=== PATIENT | female | born 1930 | race Caucasian/White ===

== ENCOUNTER 2021-05-31 12:40 | Inpatient (IN) | payer MEDICARE ==
[2021-05-31 13:35] LABS: #Eosinphils 0.1 thou/uL (0.0-0.7); #Lymphocytes 0.8 thou/uL (1.20-3.40); #Monocytes 0.7 thou/uL (0.11-0.59); #Neutrophils 6.4 thou/uL (1.40-6.50); %Basophils 0.3 % (0.0-1.0); %Eosinophils 1.3 % (0.0-10.0); %Lymphocytes 9.9 % (21.0-51.0); %Monocytes 8.4 % (0.0-10.0); %Neutrophils 80.2 % (42.0-75.0); Hemoglobin 12.4 g/dL (12.0-16.0); Mean Corpuscular HGB CONC 32.1 g/dL (32.0-36.0); Mean Corpuscular Hemoglobin 31.2 pg (27.0-31.0); Mean Platelet Volume 6.7 fL (7.4-10.4); Platelet Count 239 thou/uL (130-400); RBC Distribution Width 13.5 % (11.5-14.5); Red Blood Cell (RBC) Count 3.98 mill/uL (4.20-5.40)
[2021-05-31 13:53] LABS: Bilirubin Negative (Negative); Blood, Urine Negative (Negative); Clarity Clear (Clear); Glucose, Urine (Dipstick) Normal (Negative); Ketone, Urine Negative (Negative); Leukocyte Negative Leu/uL (Negative); Nitrite Negative (Negative); Protein, Urine (Dipstick) Negative (Neg-Trace); Specific Gravity, Urine 1.007 (1.002-1.036); Urobilinogen Normal mg/dL (Less than 2); pH, Urine 7.5 (5.0-9.0)
[2021-05-31 13:58] LABS: ALT (SGPT) 16 U/L (8-55); AST (SGOT) 24 U/L (5-34); Albumin 3.9 g/dL (3.4-4.8); Alkaline Phosphatase 64 U/L (40-110); Anion Gap 15 mmol/L (10-20); BUN (Urea Nitrogen) 15 mg/dL (9.8-20.1); Bilirubin, Total 1.2 mg/dL (0.2-1.2); Calc. Creatinine Clearance 0 mL/min (70-130); Calcium 9.8 mg/dL (7.8-10.44); Carbon Dioxide 26 mmol/L (23-31); Chloride 103 mmol/L (98-107); Glucose 101 mg/dL (83-110); Magnesium 2.4 mg/dL (1.6-2.6); Potassium 3.7 mmol/L (3.5-5.1); Protein, Total 6.9 g/dL (5.8-8.1); Sodium 140 mmol/L (136-145)
[2021-05-31 17:16] LABS: Troponin I 0.018 ng/mL (< 0.028)
[2021-05-31] MEDS ORDERED: Acetaminophen 325 MG TAB PO PRN (18:08)
[2021-05-31] MEDS ORDERED: Ondansetron ODT 4 MG TAB PO PRN (18:08)
[2021-05-31] MEDS ORDERED: Ondansetron PF 4 MG/2 ML Vial IVP PRN (18:08)
[2021-05-31] MEDS ORDERED: Docusate 100 MG CAP PO PRN (18:11)
[2021-05-31] MEDS ORDERED: hydrALAZINE 20 MG/ML VIAL SLOW IVP PRN (18:11)
[2021-05-31] MEDS ORDERED: Electrolyte Replacement Protocol 1 EACH FS SCH (18:15)
[2021-05-31] MEDS ORDERED: Electrolyte Replacement Protocol FS PRN (18:30)
[2021-05-31 20:12] VITALS: BMI 29.4
[2021-05-31] MEDS ORDERED: Carvedilol 3.125 MG TAB PO SCH (21:00)
[2021-05-31] MEDS: Furosemide 20 MG TAB PO SCH (21:24)
[2021-05-31] MEDS: Atorvastatin Calcium 10 MG TAB PO SCH (21:24)
[2021-05-31 23:42] LABS: SARS-CoV-2 PCR by NAA Not Detected (NotDetected)
[2021-06-01 06:30] LABS: Cardiac Risk 3.1 (Less than 4.5)
[2021-06-01] MEDS ORDERED: FLU VACC QS2021-22(65YR UP)/PF 240 MCG/0.7 ML SYRINGE IM ONE (09:00)
[2021-06-01] MEDS: Amlodipine 5 MG TAB PO SCH (09:12)
[2021-06-01] MEDS: Carvedilol 6.25 MG TAB PO SCH ×2 (09:12→21:36)
[2021-06-01] MEDS: Furosemide 20 MG TAB PO SCH ×2 (09:12→21:36)
[2021-06-01] MEDS: Calcium Carbonate 600 MG + Vit D TAB PO SCH ×3 (11:01→22:06)
[2021-06-01] MEDS: Atorvastatin Calcium 10 MG TAB PO SCH (21:36)
[2021-06-02 09:02] LABS: Anion Gap 14 mmol/L (10-20); BUN (Urea Nitrogen) 13 mg/dL (9.8-20.1); Calc. Creatinine Clearance 59 mL/min (70-130); Carbon Dioxide 25 mmol/L (23-31); Chloride 104 mmol/L (98-107); Glucose 113 mg/dL (83-110); Magnesium 2.4 mg/dL (1.6-2.6); Potassium 3.7 mmol/L (3.5-5.1); Sodium 139 mmol/L (136-145)
[2021-06-02] MEDS: Amlodipine 5 MG TAB PO SCH (09:21)
[2021-06-02] MEDS: Carvedilol 6.25 MG TAB PO SCH ×2 (09:21→21:22)
[2021-06-02] MEDS: Calcium Carbonate 600 MG + Vit D TAB PO SCH ×2 (09:22→21:21)
[2021-06-02] MEDS: Furosemide 20 MG TAB PO SCH ×2 (09:22→21:21)
[2021-06-02] MEDS: Atorvastatin Calcium 10 MG TAB PO SCH (21:21)
[2021-06-03] MEDS: Carvedilol 6.25 MG TAB PO SCH ×2 (09:01→23:29)
[2021-06-03] MEDS: Furosemide 20 MG TAB PO SCH ×2 (09:01→21:37)
[2021-06-03] MEDS: Calcium Carbonate 600 MG + Vit D TAB PO SCH ×2 (09:01→21:37)
[2021-06-03] MEDS: Amlodipine 5 MG TAB PO SCH (09:01)
[2021-06-03] MEDS: Atorvastatin Calcium 10 MG TAB PO SCH (21:37)
[2021-06-04 08:28] LABS: #Eosinphils 0.3 thou/uL (0.0-0.7); #Lymphocytes 1.1 thou/uL (1.20-3.40); #Monocytes 0.7 thou/uL (0.11-0.59); #Neutrophils 4.1 thou/uL (1.40-6.50); %Basophils 0.4 % (0.0-1.0); %Eosinophils 4.5 % (0.0-10.0); %Monocytes 11.9 % (0.0-10.0); %Neutrophils 66.2 % (42.0-75.0); Hemoglobin 12.1 g/dL (12.0-16.0); Mean Corpuscular HGB CONC 32.5 g/dL (32.0-36.0); Mean Corpuscular Hemoglobin 31.7 pg (27.0-31.0); Mean Corpuscular Volume 97.6 fL (78.0-98.0); Mean Platelet Volume 6.8 fL (7.4-10.4); Platelet Count 238 thou/uL (130-400); RBC Distribution Width 13.4 % (11.5-14.5); White Blood Cell (WBC) Count 6.2 thou/uL (4.8-10.8)
[2021-06-04] MEDS: Carvedilol 6.25 MG TAB PO SCH ×2 (08:41→20:47)
[2021-06-04] MEDS: Amlodipine 5 MG TAB PO SCH (08:41)
[2021-06-04] MEDS: Calcium Carbonate 600 MG + Vit D TAB PO SCH ×2 (08:41→20:47)
[2021-06-04 08:43] LABS: Anion Gap 9 mmol/L (10-20); BUN (Urea Nitrogen) 15 mg/dL (9.8-20.1); Calc. Creatinine Clearance 62 mL/min (70-130); Calcium 9.1 mg/dL (7.8-10.44); Carbon Dioxide 29 mmol/L (23-31); Chloride 102 mmol/L (98-107); Glucose 109 mg/dL (83-110); Potassium 3.3 mmol/L (3.5-5.1); Sodium 137 mmol/L (136-145)
[2021-06-04] MEDS ORDERED: Potassium Chloride 20 MEQ TAB PO SCH (09:15)
[2021-06-04] MEDS: Atorvastatin Calcium 10 MG TAB PO SCH (20:47)
[2021-06-05] MEDS ORDERED: Potassium Chloride 20 MEQ TAB PO SCH (08:00)
[2021-06-05 08:55] LABS: Potassium 4.6 mmol/L (3.5-5.1)
[2021-06-05] MEDS: Amlodipine 5 MG TAB PO SCH (10:39)
[2021-06-05] MEDS: Calcium Carbonate 600 MG + Vit D TAB PO SCH (10:41)
[2021-06-05] MEDS: Carvedilol 6.25 MG TAB PO SCH (10:41)
[2021-06-05 13:03] VITALS: BP 140/65; TEMP 97.4
== END 2021-06-05 14:36 | disposition home health service (06) | DRG 281 ==
LOC: ERS 12:40 → ERHOLD 15:14 → 2NO 17:57 → OBSVTOIN 06-02 14:06
PROVIDERS: ADMIT Hospitalist; ATTEND Internal Medicine
PROC: 4A10X4Z Monitoring of Central Nervous Electrical Activity, External Approach (ICD-10-PCS; principal; 2021-06-02)
DX: R55 Syncope and collapse (principal); I21.A1 Myocardial infarction type 2; M84.462A Pathological fracture, left tibia, initial encounter for fracture; M84.472A Pathological fracture, left ankle, initial encounter for fracture; E78.5 Hyperlipidemia, unspecified; I50.9 Heart failure, unspecified; E78.00 Pure hypercholesterolemia, unspecified; D50.9 Iron deficiency anemia, unspecified; Z66 Do not resuscitate; L40.9 Psoriasis, unspecified; E87.6 Hypokalemia; Z91.14 Patient's other noncompliance with medication regimen; I25.2 Old myocardial infarction; Z79.899 Other long term (current) drug therapy; I11.0 Hypertensive heart disease with heart failure
CPT/HCPCS: 36415; 70450; 71045; 72125; 80048; 80053; 80061; 81003; 83735; 83880; 84132; 84443; 84484; 85025; 93005; 93306; 93880; 95816; 95819; 95957; U0003; U0005